=== PATIENT | female | born 1990 | race Caucasian/White ===

== ENCOUNTER 2020-10-10 16:13 | Emergency (ER) | payer OTHER ==
[2020-10-10 16:40] LABS: BASOPHIL 1.2 % (0-2); EOSINOPHIL 4.5 % (0-5); HCT 38.1 % (37.0-47.0); HGB 12.2 g/dl (12.5-16.0); LYMPHOCYTE 33.2 % (15-48); MCH 25.7 pg (25.0-31.0); MCV 80.2 fL (78.0-100.0); MONOCYTE 7.8 % (0-12); MPV 9.2 fL (6.0-9.5); NEUTROPHIL 52.5 % (41-80); NRBC 0; PLT 311 K/uL (150-400); RBC 4.75 M/uL (4.20-5.40); RDW 14.6 % (11.5-14.0)
[2020-10-10 17:14] LABS: BILIRUBIN - TOTAL 0.2 mg/dL (0.2-1.0); BUN/CREAT RATIO (CALC) 12.9 RATIO; CREATININE 0.62 mg/dL (0.51-0.95); GLOBULIN (CALCULATION) 4.8 g/dL; TOTAL PROTEIN 7.8 g/dL (6.4-8.2)
[2020-10-10 17:29] LABS: CKMB <0.5 ng/mL (0.0-3.6)
[2020-10-10 19:14] LABS: BILIRUBIN NEGATIVE (NEGATIVE); BLOOD NEGATIVE Ery/uL (NEGATIVE); CLARITY HAZY (CLEAR); COLOR YELLOW (YELLOW); GLUCOSE (U) NORMAL (NORMAL); LEUKOCYTES TRACE Leu/uL (NEGATIVE); NITRITE NEGATIVE (NEGATIVE); PROTEIN 2+ mg/dL (NEGATIVE); SPECIFIC GRAVITY >=1.030 (1.001-1.030); UROBILINOGEN 0.2 mg/dL (0.2-1.0); pH 5.5 (5.0-9.0)
[2020-10-10 19:15] LABS: HCG (URINE) SCREEN NEGATIVE (NEGATIVE)
[2020-10-10 19:29] LABS: BACTERIA 4+; SQUAMOUS EPITHELIAL CELLS >50; URINARY RBC RARE; URINARY WBC 20-50
[2020-10-10] MEDS ORDERED: CEFDINIR300 MG PO (19:56)
== END 2020-10-10 20:14 | disposition home or self-care (01) ==
LOC: FER 16:13
PROVIDERS: Nurse Practitioner
DX: F41.9 Anxiety disorder, unspecified (principal); R07.89 Other chest pain; N39.0 Urinary tract infection, site not specified; Z88.1 Allergy status to other antibiotic agents; Z88.8 Allergy status to other drugs, medicaments and biological substances; Z79.899 Other long term (current) drug therapy
CPT/HCPCS: 36415; 71045; 80053; 81001; 82150; 82553; 83690; 84484; 84703; 85025; 93005